=== PATIENT | male | born 1985 | race Caucasian/White ===

== ENCOUNTER 2018-09-18 12:51 | Outpatient (CLI) | payer OTHER ==
--- NOTE | 2018-09-18 13:54 | CONSULTATION NOTE ---
Information from patient questionnaire entered by Evelyn Pizarro. I have reviewed and concur with the information entered by Evelyn Pizarro. This document represents the service I personally performed and the decisions made by me, Palmer Armenta MD, [facility]. - History of Present Illness Chief Complaint: Unrefreshed sleep, Snoring, Excessive daytime sleepiness, Observed pauses in breathing, Fatigue Mr. Pineda is here with his today complaining of poor sleep. The patient tells me that he normally goes to bed around 10:00-11:00 pm, and it takes him approximately 30 minutes to fall asleep. He has been told that he snores loudly and irregularly at night. He has been observed to stop breathing in his sleep. His can still sleep in the same bed. He can recall waking up on the average of 0-1 times during the night. Most of the time he wakes up because of bad dreams. He has awakened for his own snoring, choking, and having to gasp for air. There is a lot of tossing and turning in his sleep. Generally he can recall having dreams. He usually wakes up at 5:45 am and does not feel refreshed. He usually does not have a morning headache. During the day he complains of feeling sleepy and fatigued. He has never fallen asleep while driving nor has any accident due to sleepiness. He usually naps during the day. If he naps, upon falling asleep during the day he denies having vivid dreams. There is no somniloquy (sleep talking) or somnambulism (sleep walking). He has had sleep paralysis. No symptoms of restless leg syndrome. He reports having impaired concentration during the day. 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 Patient is and lives in [place]. Smoked in the past 12 months: No Alcohol use: Yes Amount and frequency: 2-3 drinks 1-3 times a month Caffeine use: Yes Amount and frequency: 16oz of coffee a day - Family History Family history of sleep disordered breathing: No Family Hx Sleep Apnea: Father: Snoring - Review of Systems Weight gain over past 5 years: 10-15 lbs Cardiovascular: reports: high blood pressure Gastrointestinal: reports: heartburn, diarrhea, abdominal pain Psychiatric: reports: anxiety Ear/Nose/Throat: reports: nasal congestion, tonsillectomy Endocrine: reports: sluggishness, too hot or cold Musculoskeletal: reports: joint pain - Physical Examination HEENT: No craniofacial malformation Nostrils: patent to airflow Turbinates: normal Septum: midline Mouth and throat: normal Soft palate: long Hard palate: normal Uvula: normal Tongue: normal in size Tonsils: small Chin and jaw: Retrognathia Neck: normal w/o lymphadenopathy or thyromegaly Heart: regular rate and rhythm Lungs: clear bilaterally Abdomen: soft, non-tender Extremities: no edema or clubbing Neurologic: intact, no focal deficits - Impression 1. Suspected Obstructive Sleep Apnea-Hypopnea Syndrome, as suggested by a history of loud and irregular snoring, observed cessation of breath while asleep, gasping or choking in sleep, unrefreshed sleep, and excessive daytime sleepiness. Narrow oropharynx and obesity are common predisposing factors for obstructive sleep apnea-hypopnea syndrome. The retrognathia probably plays a role. I recommend proceeding to polysomnography to confirm the diagnosis and to assess severity. If the patient has significant sleep disordered breathing, a manual CPAP titration study will also be performed to find the optimal treatment pressure. I informed the patient of what the sleep studies involve and after some discussion, obtained agreement to proceed. The pathophysiology of obstructive sleep apnea-hypopnea syndrome was discussed with the patient and health risks of cardiovascular and cerebrovascular disease if not treated. Risks of drowsy driving discussed in detail and patient advised to avoid long distance driving and to side puller at the first sign of drowsiness. Patient agreed to plan. - Plan Schedule polysomnography +/- manual CPAP titration study and return in 1-2 weeks after the study to discuss result and initiate therapy. Avoid long distance driving or driving when feeling sleepy. Avoid alcohol, sedative and muscle relaxant around bedtime. Attempt to lose weight. Review instructions provided by trained office staff on how to prepare for the sleep study. Return for follow-up after sleep study completed. I spent 100% of this 25 minute visit face to face with the patient with greater than 50% of this was spent time counseling the patient and coordination of care.
== END 2018-09-18 12:52 | disposition home or self-care (01) ==
LOC: SC 12:51
PROVIDERS: ATTEND Internal Medicine Pulmonary Disease
DX: R06.83 Snoring (principal); R06.81 Apnea, not elsewhere classified; G47.8 Other sleep disorders; G47.10 Hypersomnia, unspecified
CPT/HCPCS: 99203; 99212

== ENCOUNTER 2018-09-24 20:28 | Outpatient (CLI) | payer OTHER | END 2018-09-24 20:29 | disposition home or self-care (01) | LOC: SC 20:28 | PROVIDERS: ATTEND Internal Medicine Pulmonary Disease | DX: R06.83 Snoring (principal); G47.61 Periodic limb movement disorder | CPT/HCPCS: 95810 ==

== ENCOUNTER 2018-10-30 13:42 | Outpatient (CLI) | payer OTHER ==
[2018-10-30 15:07] VITALS: BP 120/70
--- NOTE | 2018-10-30 15:07 | SLEEP CARE CONSULTATION ---
Information from patient questionnaire entered by Rachel Berg. I have reviewed and concur with the information entered by Rachel Berg. This document represents the service I personally performed and the decisions made by me, Rosie Graves RN, MSN, [employer]. History of Present Illness Accompanied by: Spouse Initial [place] Sleepiness Scale score: 14 Current [place] Sleepiness Scale score: 14 Additional HPI information: FAVIOLA ABRAHAM returns with spouse for follow up of the recently performed polysomnography. The patient was informed of the polysomnography findings noted in study portion. I explained the pathophysiology behind obstructive sleep apnea. Patient does not have significant sleep disordered breathing but has elevated AHI in supine position so advised positional therapy. Methods to achieve positional management therapy were discussed; such as, positioning with pillows, wearing a T-shirt with tennis balls sewn into the back, and Slumberbump belt. Pamphlets provided on how to obtain the commercially available products. Patient also has loud snoring. Snoring can be reduced by weight loss. Weight loss is best achieved with diet consult. Patient instructed to contact PCP for referral. Snoring can also be treated with an oral appliance from a dentist but if considered he is advised to check insurance coverage. In addition, an ENT evaluation can be done to see if other treatment is indicated. Patient counseled not drink alcohol less than 4 hours before bedtime as it can increase snoring and apnea. Patient was cautioned about risks of drowsy driving until sleepiness symptoms resolve. Patient denies drowsy driving. Sleep Study - Polysomnography Polysomnography findings: The quality of the study is good. The patient had normal sleep efficiency. The sleep architecture was normal as well. Respiratory monitoring showed no significant sleep disordered breathing (AHI = 3.8) or hypoxia (lydia oxygen saturation of 87% and only 0.5% to the total sleep time was spent with oxygen saturation below 90%). The few respiratory events occurred almost exclusively during supine sleep (supine AHI = 10.5; nonsupine = 0.67). Snore was loud in intensity. There was mild periodic leg movement of sleep not associated with sleep fragmentation. Cardiac rhythm was normal sinus rhythm without significant arrhythmia. No abnormal behavior (parasomnia) observed during the night. Allergies and Home Medications Known drug allergies: No Home medication list reviewed: Yes (None at this time) Review of Systems Review of systems same as previous: Yes Physical Exam Blood Pressure: 120/70 Cuff size: long Heart Rate: 88 O2 Saturation: 97 Height: 5 ft 8.5 in Weight (kg): 90.991 kg Body Mass Index: 30.0 BMI Classification: Class 1 Impression and Plan 1. Snoring but no significant sleep disordered breathing except in supine position. Thus patient advised to avoid supine using positional methods discussed. Patient advised that often weight loss will reduce snoring as well as apnea risk. A diet consultation can assist meeting weight loss goals and advised to obtain a referral from his PCP and have his attend for better team effort. An oral appliance can also be used for snoring. This would require a dental consultation. Patient cautioned not to use other online appliances as can cause bite issues. An ENT consult can also be helpful to determine if any other treatment is an option. With his retroganthia, he may be a candidate for jaw reconstruction for better jaw alignment to reduce snoring and apnea. Thus it is hoped his sleepiness symptoms are reduced with positional therapy. However, he is also advised to follow up with PCP for further evaluation of fatigue. At follow up it will be determined if positional therapy successful or further evaluation indicated. AASM non PAP treatment and Snoring and Apnea pamphlets given and reviewed. 2. Periodic limb movement, mild , that did not fragment patients sleep. Periodic limb movement of sleep (PLMS) is characterized by episodes of repetitive limb movements that occur during sleep and usually involve the lower limbs. The etiology is unknown but can be associated with restless leg syndrome (RLS), neuropathy, spinal cord diseases, kidney disease, rheumatological disorders, narcolepsy, obstructive sleep apnea, and REM sleep behavior disorder. Other factors that can increase PLMS and/or RLS are heredity and iron deficiency as reflected by a low serum ferritin level below 50 to 75mcg / L. Several medications can precipitate or aggravate PLMS such as selective serotonin re- uptake inhibitor antidepressants, tricyclic antidepressants, lithium, and dopamine receptor antagonists with the exception of bupropion. Caffeine can also aggravate PLMS and should be avoided. Sleep hygiene methods can also improve sleep as well as lifestyle changes such as regular exercise. Patient was advised that no treatment is needed at this time. If symptoms increase, then further evaluation is indicated. Positional therapy Attempt to lose weight consider diet consultation * Avoid alcohol consumption near bedtime * Follow up with PCP for further evaluation of fatigue and for referral to diet consultation. * The patient is cautioned about driving until sleepiness is completely resolved. * Return in 2 months for follow up. I will response compliance and effectiveness of treatment at that time. I spent 100% of this 35 minute visit face to face with the patient with greater than 50% of this was spent time counseling the patient and coordination of care.
== END 2018-10-30 13:43 | disposition home or self-care (01) ==
LOC: SC 13:42
PROVIDERS: ATTEND Nurse Practitioner Family
DX: R06.83 Snoring (principal)
CPT/HCPCS: 99212; 99214